=== PATIENT | male | born 1930 | race Caucasian/White ===

== ENCOUNTER 2020-01-03 13:21 | Inpatient (IN) | payer MEDICARE, OTHER ==
[~2020-01-03] VITALS: Ht 170.2 cm; Wt 43.6 kg
[2020-01-03 14:29] LABS: Basophils # (auto) 0 10 ^3/uL (0-0.2); Eosinophils # (auto) 0 10 ^3/uL (0-0.8); Hematocrit 35.3 % (41.0-53.0); Hemoglobin 11.7 g/dL (13.5-17.5); Lymphocytes # (auto) 0.8 10 ^3/uL (0.4-5.4); Lymphocytes % (auto) 6.5 % (10.0-50.0); Mean Corpuscular Hgb Conc. 33.2 g/dL (32.0-36.0); Mean Corpuscular Volume 96.4 fL (80.0-100.0); Monocytes # (auto) 1.1 10 ^3/uL (0-1.3); Neutrophils # (auto) 10.3 10 ^3/uL (1.6-8.6); Neutrophils % (auto) 84.5 % (37.0-80.0); Platelet Count (auto) 147 10^3/uL (140-450); Red Blood Cells 3.66 10^6/uL (4.5-5.90); Red Cell Distribution Width 13.4 % (11.8-14.3); White Blood Cell 12.2 10^3/uL (4.4-10.8)
[2020-01-03 14:54] LABS: Albumin 2.7 g/dL (3.4-5.0); Calcium 8.8 mg/dL (8.5-10.1); Magnesium 2.7 mg/dL (1.6-2.6); Potassium 4.6 mmol/L (3.5-5.1)
[2020-01-03 14:59] LABS: INR 0.98 (0.9-1.15); Partial Thromboplastin Time 29.3 sec (23.0-31.2)
[2020-01-03 15:02] LABS: BUN/Creatinine Ratio 35.7; Bilirubin, Total 0.7 mg/dL (0.2-1.0); Total Protein 6.3 g/dL (6.4-8.2)
[2020-01-03] MEDS ORDERED: MORPHINE SULF INJ 2 MG/ML SYRINGE 1ML IV PRN ×3 (15:30→16:15)
[2020-01-03] MEDS ORDERED: NITROGLYCERIN 0.4 MG SL TAB SL PRN ×2 (15:30→16:15)
[2020-01-03] MEDS ORDERED: LACTATED RINGER'S 1,000 ML IV ONE (15:30)
[2020-01-03] MEDS ORDERED: OXYC325T14 PO (16:13)
[2020-01-03] MEDS ORDERED: DILT240C46 PO (16:13)
[2020-01-03] MEDS ORDERED: LISI-648 PO (16:13)
[2020-01-03] MEDS ORDERED: LOVA40TA72 PO (16:13)
[2020-01-03] MEDS ORDERED: cefTRIAXone 1GM/50ML D5W 50 ML IV ONE (16:15)
[2020-01-03] MEDS ORDERED: CLINDAMYCIN 600MG IV 50 ML IV ONE (16:15)
[2020-01-03] MEDS ORDERED: ONDANSETRON HCL 4 MG/2 ML VIAL IV PRN (16:15)
[2020-01-03] MEDS ORDERED: DOCUSATE SOD 100 MG CAP PO PRN (16:15)
[2020-01-03] MEDS ORDERED: ALUM & MAG HYDROX-SIMETH LIQ(MAALOX) 30 ML PO PRN (16:15)
[2020-01-03] MEDS ORDERED: LORazepam 0.5 MG TAB PO PRN (16:15)
[2020-01-03] MEDS ORDERED: ACETAMINOPHEN 325 MG TAB PO PRN (16:15)
[2020-01-03] MEDS ORDERED: hydrALAZINE HCL 25 MG TAB PO PRN (16:30)
[2020-01-03] MEDS: Ensure Enlive Chocolate 8oz Bottle PO SCH (18:00)
[2020-01-03] MEDS: SODIUM CHLORIDE 0.9% 1,000 ML IV SCH (18:10)
--- NOTE | 2020-01-03 18:38 | NUR ---
Telemetry admit from ER GELY HARTMAN admitted to Telemetry unit after SBAR received. Patient oriented to Isabel roca RN, unit, room, bed, and unit policies regarding patient care and visiting hours. Patient now on continuous telemetry monitoring, tele box # [id number] and telemetry reading on arrival to unit is sinus rhythm. Patient placed on bedside oxygen, weighed by bedscale and encouraged to call if they need something. All questions and concerns addressed, patient verbalized understanding.
[2020-01-03 20:10] VITALS: BP 137/67
--- NOTE | 2020-01-03 20:50 | NUR ---
provided update to primary rn. admission complete and notified rn of patient family requesting MD to talk about DNR status.
[2020-01-03] MEDS: CLINDAMYCIN 600MG IV 50 ML IV SCH (21:36)
[2020-01-03 22:00] VITALS: BP 132/62
--- NOTE | 2020-01-03 22:15 | NUR ---
DOCTOR NUNEZ FOR GI TELEPHONE ORDERS RECEIVED, READ BACK AND VERIFIED. ORDERS AND PLACED AND WILL CARRY OUT.
--- NOTE | 2020-01-03 22:50 | NUR ---
BOWEL MOVEMENT SCANT AMOUNT AND SMEARED; UNABLE TO COLLECT FOR STOOL ORDERS.
--- NOTE | 2020-01-03 23:10 | NUR ---
PATIENT IS RESTLESS IN BED ATTEMPTING TO PULL OFF NC AND IV LINE. NURSE HATCHERY WORKER IS AT BEDSIDE FOR SAFETY PRECAUTIONS. BEDSIDE RAILS ARE UP, HEAD OF BED IS UP >30 DEGREES.
--- NOTE | 2020-01-03 23:46 | NUR ---
PATIENT CONTINUES TO BE RESTLESS. PATIENT IS PULLING ON O2 NC AND AT IV. PROVIDED PATIENT WITH SOFT MITTENS. NURSE WOOD MACHINIST APPRENTICE REMAINS AT BEDSIDE FOR PATIENT SAFETY PRECAUTIONS.
[2020-01-04] MEDS: SODIUM CHLORIDE 0.9% 1,000 ML IV SCH ×3 (01:21→21:01)
--- NOTE | 2020-01-04 04:56 | NUR ---
BOWEL MOVEMENT PATIENT IS INCONTINENT OF BOWEL AND URINE. BOWEL IS SCANT AND SMEAR; NOT ABLE TO COLLECT.
[2020-01-04 05:03] VITALS: BP 130/64
[2020-01-04] MEDS: CLINDAMYCIN 600MG IV 50 ML IV SCH ×3 (05:30→21:02)
[2020-01-04 06:48] LABS: Potassium 4.2 mmol/L (3.5-5.1)
[2020-01-04 06:56] LABS: BUN/Creatinine Ratio 41.6; Basophils # (auto) 0 10 ^3/uL (0-0.2); Basophils % (auto) 0.1 % (0.0-2.0); Calcium 9.1 mg/dL (8.5-10.1); Eosinophils # (auto) 0 10 ^3/uL (0-0.8); Eosinophils % (auto) 0.1 % (0.0-7.0); Hematocrit 36.6 % (41.0-53.0); Hemoglobin 12.3 g/dL (13.5-17.5); Lymphocytes # (auto) 0.9 10 ^3/uL (0.4-5.4); Lymphocytes % (auto) 8.2 % (10.0-50.0); Mean Corpuscular Hemoglobin 32.5 pg (28.0-32.0); Mean Corpuscular Hgb Conc. 33.5 g/dL (32.0-36.0); Mean Corpuscular Volume 97.1 fL (80.0-100.0); Monocytes # (auto) 0.9 10 ^3/uL (0-1.3); Monocytes % (auto) 8.7 % (0.0-12.0); Neutrophils # (auto) 8.8 10 ^3/uL (1.6-8.6); Neutrophils % (auto) 82.9 % (37.0-80.0); Platelet Count (auto) 149 10^3/uL (140-450); Red Blood Cells 3.77 10^6/uL (4.5-5.90); Red Cell Distribution Width 13.2 % (11.8-14.3); White Blood Cell 10.6 10^3/uL (4.4-10.8)
[2020-01-04 08:00] VITALS: BP 145/67
[2020-01-04] MEDS: Ensure Enlive Chocolate 8oz Bottle PO SCH ×3 (08:00→18:00)
--- NOTE | 2020-01-04 08:01 | NUR ---
CRITICAL TROP PAGED LULU ZHAO TO REPORT CRITICAL TROP OF 0.522 AND BUN OF 84.
[2020-01-04 09:00] VITALS: BP 145/67
[2020-01-04] MEDS: cefTRIAXone 1GM/50ML D5W 50 ML IV SCH (09:15)
--- NOTE | 2020-01-04 09:15 | NUR ---
Informed Dr Chavez of critical Trop of BUN. No orders at this time
[2020-01-04] MEDS: dilTIAZem 120MG ER CAP PO SCH (09:16)
[2020-01-04] MEDS: PANTOPRAZOLE 40 MG/10 ML VIAL INJ IV SCH (09:16)
--- NOTE | 2020-01-04 11:20 | NUR ---
Dr Choi bedside with patient. Orders received and carried out
--- NOTE | 2020-01-04 11:36 | NUR ---
Nutrition Assessment/consult Notes: please see attached link for complete assessment Est Energy needs IBW 67 [id number] kcals (25-30 kcal/kgIBW), Est Protein needs: 67-73 gms/day (1.0-1.1gm/kgIBW r/t elev RFT). Will continue to monitor and reassess prn. Addendum: 01/04/20 at [address] Amended: Links added.
--- NOTE | 2020-01-04 12:45 | NUR ---
Dr Peace bedside with patient discussing plan of care.
[2020-01-04 13:00] VITALS: BP 117/44
--- NOTE | 2020-01-04 13:10 | NUR ---
Paged Dr Choi. Kelsey catheter will not advance, I am unable to place at this time.
--- NOTE | 2020-01-04 13:55 | NUR ---
Critical Trop Informed Dr Chavez of Critical trop of 0.585. No orders received at this time.
--- NOTE | 2020-01-04 15:45 | NUR ---
Informed Dr Choi that Kelsey could not be placed. Per MD, no further orders to place Kelsey.
--- NOTE | 2020-01-04 16:00 | NUR ---
Assessment Patient is an 89-year-old male. Assessment was completed with patient daughter Augustina . Per Augustina prior to admission patient lived home alone in a trailer on her brother [place] property. Per Augustina patient functioned independently and never wanted to move in with either her brother [place] or her. Per Augustina about a week ago patient was not eating well and would become confused at times. Per Augustina when patient condition decrease patient was brought via Paramedics to [facility]. Advised Augustina there is a social service consult for hospice evaluation. Information and choice letter was given to Augustina. Augustina requested [facility]. Per Augustina patient will be staying with her in [facility] Address: [id number] [address]. Informed Augustina she has a right to participate in all discharge planning. Augustina verbalized understanding and agreed to discharge plan. Faxed clinical information to [facility]. Per Una with [facility] patient has been accepted and service to start upon discharge day. Addendum: 01/05/20 at 0832 by BETSY CALL Amended: Links added.
[2020-01-04 17:00] VITALS: BP 126/59
[2020-01-04 22:00] VITALS: BP 102/63
[2020-01-04] MEDS: HYDROcodone-ACET 5/325MG TAB PO PRN (23:19)
--- NOTE | 2020-01-05 01:00 | NUR ---
tried to insert a schaeffer cath but could not advance.
[2020-01-05] MEDS: CLINDAMYCIN 600MG IV 50 ML IV SCH ×3 (05:09→21:13)
[2020-01-05 05:21] VITALS: BP 123/61
[2020-01-05 07:03] LABS: Calcium 8.7 mg/dL (8.5-10.1); Potassium 3.5 mmol/L (3.5-5.1)
[2020-01-05 07:05] LABS: BUN/Creatinine Ratio 47.9
--- NOTE | 2020-01-05 07:24 | NUR ---
endorsed care to day RN. no sign of distress/pain at this time
[2020-01-05 08:00] VITALS: BP 110/52
[2020-01-05 09:00] VITALS: BP 110/52
[2020-01-05] MEDS: cefTRIAXone 1GM/50ML D5W 50 ML IV SCH (09:12)
[2020-01-05] MEDS: Ensure Enlive Chocolate 8oz Bottle PO SCH ×3 (09:12→18:00)
[2020-01-05] MEDS: HYDROcodone-ACET 5/325MG TAB PO PRN ×2 (09:13→16:03)
[2020-01-05] MEDS ORDERED: D5W/SOD CHL 0.45% 1,000 ML IV ONE (09:15)
--- NOTE | 2020-01-05 09:30 | NUR ---
Dr Peace bedside with patient and patient's daughter discussing plan of care
[2020-01-05] MEDS: dilTIAZem 120MG ER CAP PO SCH (10:00)
[2020-01-05] MEDS: PANTOPRAZOLE 40 MG/10 ML VIAL INJ IV SCH (10:34)
--- NOTE | 2020-01-05 11:16 | NUR ---
D/C Planning Per Una with [facility] Medical equipment will be ready for patient tomorrow and ask if patient can be discharge in the morning due to family needing to rearrange room for patient at home. Informed Dr. Peace who is in agreement for patient to discharge in the morning once medical equipment has been deliver to patient home. Informed OMAR Salcedo.
[2020-01-05 13:00] VITALS: BP 129/65
--- NOTE | 2020-01-05 14:00 | NUR ---
Patient's son, [place] called. Update provided.
[2020-01-05 17:00] VITALS: BP 138/74
--- NOTE | 2020-01-05 19:30 | NUR ---
Opening Shift Note Assumed care of patient, awake and alert. No S/S of distress/SOB or pain. Sitter at bedside.Instructed on POC and to call for assist PRN, will continue to monitor for changes Q1hr and PRN.
[2020-01-05 22:00] VITALS: BP 135/80
--- NOTE | 2020-01-05 22:00 | NUR ---
IV insertion IV access obtained, via clean sterile technique by inserting 22 gauge catheter at right FA after attempt(s). IV secured properly. No trauma to site. Patient tolerated procedure well.
[2020-01-06] MEDS: HYDROcodone-ACET 5/325MG TAB PO PRN (02:35)
--- NOTE | 2020-01-06 04:52 | NUR ---
IV insertion IV access obtained, via clean sterile technique by inserting 22 gauge catheter at after attempt(s). IV secured properly. No trauma to site. Patient tolerated procedure well. IV removal IV DC'd with sterile technique, catheter fully intact. Pressure dressing applied to site. Patient tolerated procedure well.
[2020-01-06 05:00] VITALS: BP 131/67
[2020-01-06] MEDS: CLINDAMYCIN 600MG IV 50 ML IV SCH (05:10)
--- NOTE | 2020-01-06 06:45 | NUR ---
Family updated on pt status Family (son) of GELY HARTMAN updated on patient's status and condition. All questions and concerns addressed. verbalized understanding.
--- NOTE | 2020-01-06 07:20 | NUR ---
closing notes endorsed care to day RN, no sign of pain/distress at this time
[2020-01-06 08:34] VITALS: BP 110/52
[2020-01-06 08:36] VITALS: BP 110/52
[2020-01-06 09:00] VITALS: BP 110/50
--- NOTE | 2020-01-06 09:00 | NUR ---
Patient will be transported via [facility] at 11:00am with oxygen. informed OMAR Fuller.
[2020-01-06] MEDS: PANTOPRAZOLE 40 MG/10 ML VIAL INJ IV SCH (09:02)
[2020-01-06] MEDS: cefTRIAXone 1GM/50ML D5W 50 ML IV SCH (09:02)
[2020-01-06] MEDS: dilTIAZem 120MG ER CAP PO SCH (09:03)
[2020-01-06] MEDS: Ensure Enlive Chocolate 8oz Bottle PO SCH ×2 (09:03→12:00)
--- NOTE | 2020-01-06 09:14 | NUR ---
[facility] speak to Katharina stated meds almost ready and have some copay, patient's daughter phone number given.
--- NOTE | 2020-01-06 11:00 | NUR ---
Meds delivered by [facility].
--- NOTE | 2020-01-06 13:20 | NUR ---
Discharge instructions given as ordered. Encourage to follow up with PMD (Follow up with [facility] in [place]) as instructed. All questions and concerns addressed. Patient verbalized understanding. Medication reconciliation form completed and copy given to patient. IV removed with catheter intact, pressure dressing applied. Telemetry unit returned to ICU. Patient taken to vehicle via wheelchair with all personal belongings, accompanied by staff and family member. No distress noted at time of departure.
== END 2020-01-06 13:20 | disposition hospice, home (50) | DRG 871 ==
LOC: EDBD 13:21 → ER 13:21 → TELE 13:22 → TELE-CENTR 18:36
PROVIDERS: ADMIT Hospitalist; ATTEND Family Medicine
DX: A41.9 Sepsis, unspecified organism (principal); E43 Unspecified severe protein-calorie malnutrition; I21.4 Non-ST elevation (NSTEMI) myocardial infarction; R53.2 Functional quadriplegia; J69.0 Pneumonitis due to inhalation of food and vomit; G93.41 Metabolic encephalopathy; N17.9 Acute kidney failure, unspecified; E87.0 Hyperosmolality and hypernatremia; N39.0 Urinary tract infection, site not specified; Z68.1 Body mass index [BMI] 19.9 or less, adult; I12.9 Hypertensive chronic kidney disease with stage 1 through stage 4 chronic kidney disease, or unspecified chronic kidney disease; N18.9 Chronic kidney disease, unspecified; R62.7 Adult failure to thrive; M19.90 Unspecified osteoarthritis, unspecified site; E78.5 Hyperlipidemia, unspecified; F03.90 Unspecified dementia, unspecified severity, without behavioral disturbance, psychotic disturbance, mood disturbance, and anxiety; D63.8 Anemia in other chronic diseases classified elsewhere; Z66 Do not resuscitate; E78.00 Pure hypercholesterolemia, unspecified
CPT/HCPCS: 36415; 70450; 71045; 74176; 80048; 80053; 80061; 82270; 82607; 83036; 83735; 83880; 84484; 85025; 85048; 85610; 85730; 87040; 87045; 87427; 93005; 93306; 96365; 96367; 96368; C9113; G0378; J0696; J3490